=== PATIENT | male | born 1970 | race Caucasian/White ===

== ENCOUNTER → 2018-12-28 22:36 | Outpatient (CLI) | payer OTHER, SELFPAY ==
[2018-12-28 17:38] VITALS: BMI 35.8
[2018-12-28 22:48] LABS: Absolute Lymphocyte Count 1.92 X10^3/ul (0.83-4.51); Absolute Neutrophil Count 3.9 X10^3/uL (2.0-7.7); Basophil# 0.05 X10^3/uL; Basophil% 0.7 % (0-1); Eosinophil# 0.38 X10^3/uL; Eosinophils% 5.6 % (0-5); Hematocrit 46.1 % (40-54); Hemoglobin 15.6 g/dl (13.0-16.5); Lymphocyte # 1.92 X10^3/ul (4.0); Lymphocyte % 28.2 % (19-41); Mean Corp Hgb Conc 33.8 g/gl (32-36); Mean Corpuscular Hgb 27.7 pg (27.0-32.0); Mean Corpuscular Volume 81.7 fL (80-94); Mean Platelet Vol. 10.1 fl (6.2-12.0); Monocyte# 0.58 X10^3/uL; Monocyte% 8.5 % (0-10); Neutrophil # 3.85 X10^3/uL (2.7-7.7); Neutrophil % 56.6 % (47-70); POSITIVE COUNT NO; POSITIVE DIFFERENTIAL NO; POSITIVE MORPHOLOGY NO; Platelet Count 310 K/mm3 (150-450); RBC Distribution Width CV 13.5 % (11.6-14.6); RBC Distribution Width SD 40.5 fl (35.1-43.9); Red Blood Count 5.64 M/mm3 (4.6-6.2); White Blood Count 6.8 K/mm3 (4.4-11.0)
[2018-12-28 22:56] LABS: ALB/GLOB Ratio 1.1 RATIO (0.9-2.4); AST(SGOT) 23 U/L (15-37); Alanine Aminotransfer ALT/SGPT 45 U/L (16-61); Alkaline Phosphatase 80 U/L (45-117); Amylase 26 U/L (25-115); Anion Gap 6 (5-15); BUN 9 mg/dL (7-18); Calcium,Total 8.6 mg/dL (8.5-10.1); Chloride 107 mmol/L (98-107); EST Glomerular Filtration Rate 84 mL/min (>60); Est Glom Filt Rate - Afr Amer 102 mL/min (>60); Globulin 3.7 g/dL (2.2-4.2); Glucose 86 mg/dL (74-106); Lipase 76 U/L (73-393); Protein, Total 7.7 g/dL (6.4-8.2); Sodium Level 138 mmol/L (136-145)
== END ==
PROVIDERS: Referring Provider Nurse Practitioner; Visit Provider Nurse Practitioner
DX: R10.31 Right lower quadrant pain (principal)
CPT/HCPCS: 80053; 82150; 83690; 85025

== ENCOUNTER → 2019-01-18 | Outpatient (CLI) | payer OTHER, SELFPAY ==
[2019-01-18 17:35] VITALS: BMI 35.4
[2019-01-19 00:40] LABS: Hematocrit 46.3 % (40-54); Hemoglobin 15.4 g/dl (13.0-16.5); Mean Corp Hgb Conc 33.3 g/gl (32-36); Mean Corpuscular Hgb 26.6 pg (27.0-32.0); Mean Corpuscular Volume 80.1 fL (80-94); RBC Distribution Width CV 13.7 % (11.6-14.6); Red Blood Count 5.78 M/mm3 (4.6-6.2); White Blood Count 6.6 K/mm3 (4.4-11.0)
[2019-01-19 00:41] LABS: Absolute Neutrophil Count 3.8 X10^3/uL (2.0-7.7); Basophil% 0.3 % (0-1); Eosinophils% 5.6 % (0-5); Lymphocyte % 27.5 % (19-41); Mean Platelet Vol. 10.2 fl (6.2-12.0); Monocyte# 0.58 X10^3/uL; Monocyte% 8.9 % (0-10); Neutrophil # 3.77 X10^3/uL (2.7-7.7); Neutrophil % 57.5 % (47-70); POSITIVE COUNT NO; POSITIVE DIFFERENTIAL NO; POSITIVE MORPHOLOGY NO; Platelet Count 354 K/mm3 (150-450); RBC Distribution Width SD 39.9 fl (35.1-43.9)
[2019-01-19 00:42] LABS: Basophil# 0.02 X10^3/uL; Eosinophil# 0.37 X10^3/uL
[2019-01-19 00:45] LABS: CPK Total, Creatine Kinase 168 U/L (39-308)
== END | disposition home or self-care (01) ==
PROVIDERS: Visit Provider Nurse Practitioner
DX: R10.31 Right lower quadrant pain (principal); R10.30 Lower abdominal pain, unspecified; R35.0 Frequency of micturition
CPT/HCPCS: 82550; 84153; 85025; G0103